=== PATIENT | male | born 1975 | race African-American/Black ===

== ENCOUNTER 2018-10-09 08:06 | Inpatient (IN) | payer BC, SELFPAY ==
[2018-10-09] MEDS ORDERED: Nitroglycerin 2% Ointment 1 INCH/1 GM Packet ONE (09:11)
[2018-10-09 09:15] LABS: #Eosinphils 0.2 thou/uL (0.0-0.7); #Lymphocytes 1.9 thou/uL (1.20-3.40); #Neutrophils 5.6 thou/uL (1.40-6.50); %Basophils 0.4 % (0.0-1.0); %Eosinophils 1.9 % (0.0-10.0); %Lymphocytes 21.9 % (21.0-51.0); %Monocytes 11.1 % (0.0-10.0); %Neutrophils 64.8 % (42.0-75.0); Hemoglobin 11.8 g/dL (14.0-18.0); Mean Corpuscular HGB CONC 30.6 g/dL (32.0-36.0); Mean Corpuscular Hemoglobin 26.5 pg (27.0-31.0); Mean Corpuscular Volume 86.5 fL (78.0-98.0); Mean Platelet Volume 8.5 fL (7.4-10.4); Platelet Count 259 thou/uL (130-400); RBC Distribution Width 15.2 % (11.5-14.5); Red Blood Cell (RBC) Count 4.44 mill/uL (4.70-6.10); White Blood Cell (WBC) Count 8.6 thou/uL (4.8-10.8)
--- NOTE | 2018-10-09 09:18 | RAD ---
EXAM: Portable chest: INDICATIONS: Chest pain dyspnea COMPARISON: None. FINDINGS: Heart size is mildly prominent. There is mild vascular engorgement. No focal consolidation. No obvious effusion. IMPRESSION: Mild cardiomegaly and mild vascular engorgement.
[2018-10-09] MEDS ORDERED: Aspirin 325 MG TAB ONE (10:06)
[2018-10-09 10:12] LABS: CKMB 3.8 ng/mL (0-6.6)
[2018-10-09 10:20] LABS: Albumin 3.5 g/dL (3.5-5.0)
[2018-10-09 10:21] LABS: Chloride 103 mmol/L (98-107); Potassium 4.1 mmol/L (3.5-5.1); Sodium 138 mmol/L (136-145)
[2018-10-09 10:22] LABS: Glucose 89 mg/dL (70-105)
[2018-10-09 10:23] LABS: Globulin 3.2 g/dL (2.4-3.5); Protein, Total 6.7 g/dL (6.0-8.3)
[2018-10-09 10:24] LABS: Anion Gap 11 mmol/L (10-20); Bilirubin, Total 0.6 mg/dL (0.2-1.2); Carbon Dioxide 28 mmol/L (22-29)
[2018-10-09 10:25] LABS: Alkaline Phosphatase 52 U/L (40-150)
[2018-10-09 10:26] LABS: Calc. Creatinine Clearance 0 mL/min (70-130); Estimated GFR-MDRD 72
[2018-10-09 10:27] LABS: BUN (Urea Nitrogen) 12 mg/dL (8.9-20.6)
[2018-10-09 10:28] LABS: ALT (SGPT) 22 U/L (8-55); AST (SGOT) 21 U/L (5-34)
[2018-10-09 10:29] LABS: CK (CPK) 165 U/L (30-200)
[2018-10-09] MEDS ORDERED: Enoxaparin Sodium 80 MG/0.8 ML SYRINGE ONE (11:16)
[2018-10-09] MEDS ORDERED: Enoxaparin Sodium 100 MG/ML SYRINGE ONE (11:16)
[2018-10-09] MEDS ORDERED: hydrALAZINE 20 MG/ML VIAL ONE (11:16)
[2018-10-09] MEDS ORDERED: Furosemide 40 MG/4 ML VIAL ONE (11:16)
[2018-10-09 13:05] LABS: Troponin I 0.874 ng/mL (< 0.028)
[2018-10-09 14:23] VITALS: BMI 20.9
[2018-10-09] MEDS ORDERED: Ondansetron PF 4 MG/2 ML Vial IVP PRN (14:29)
[2018-10-09] MEDS ORDERED: Ondansetron ODT 4 MG TAB SL PRN (14:29)
[2018-10-09] MEDS ORDERED: Nitroglycerin 0.4 MG TAB (25 Tab Bottle) SL PRN (15:12)
[2018-10-09] MEDS ORDERED: Furosemide 20 MG/2 ML VIAL SLOW IVP SCH (15:30)
[2018-10-09 15:41] LABS: Critical Call Chem Troponin I RESULT DECREASING; Troponin I 0.732 ng/mL (< 0.028)
[2018-10-09 16:45] LABS: Amphetamine Not Detected (NotDetected); Barbiturates Screen Not Detected (NotDetected); Benzodiazepine Screen Not Detected (NotDetected); Cocaine Metabolite Screen Detected (NotDetected); Medtox Control Line Valid? VALID (VALID); Medtox Reader # READER 4; Methadone Not Detected (NotDetected); Methamphetamine Not Detected (NotDetected); Opiate Screen Not Detected (NotDetected); Oxycodone Screen Not Detected (NotDetected); Phencyclidine (PCP) Not Detected (NotDetected); THC/Cannabinoid Screen Not Detected (NotDetected); Tricyclic Screen Not Detected (NotDetected)
--- NOTE | 2018-10-09 17:09 | HP ---
PRIMARY CARE PROVIDER: Dr. Jeff Fong. CHIEF COMPLAINT: Chest pain. HISTORY OF PRESENT ILLNESS: Mr. Nunez is a pleasant 43-year-old gentleman, who was seen at [facility] on October 09, 2018. He has a past medical history of hypertension. Hospitalized at this facility in August 2015 for diverticular bleed. He reports that he has not seen his primary care provider in a couple of years. He does not take any medications at home. Over the last 2 weeks, he has had progressively worsening shortness of breath. He endorses orthopnea and paroxysmal nocturnal dyspnea. Also, endorses bilateral lower extremity edema over the last 2 days. He reports cough over the last 2 weeks. The cough is dry, with occasional small amount of sputum at night. He has been taking herbal teas and NyQuil, with improvement in cough. Over the last 3 days, he has had chest pain. The pain is in the retrosternal and left areas of the chest, occasionally sharp, occasionally dull, nonradiating, nonpleuritic and nonexertional. He cannot recall any aggravating or relieving factors. He denies any fevers or chills. He denies any long distance travel prior to the onset of his symptoms. Came to the emergency room today because of ongoing chest pain. REVIEW OF SYSTEMS: All other systems reviewed and found to be negative. PAST MEDICAL HISTORY: Hypertension and diverticulosis. PAST SURGICAL HISTORY: Colonoscopy. SOCIAL HISTORY: The patient smokes 2 to 5 cigarettes whenever he has alcohol. 12-pack of alcohol lasting a week. He denies any recreational drug use. FAMILY HISTORY: No family history of coronary artery disease. ALLERGIES: NO KNOWN DRUG ALLERGIES. CURRENT MEDICATIONS: None. PHYSICAL EXAMINATION: GENERAL: On examination, Mr. Nunez is awake and alert, not in acute distress. VITAL SIGNS: Blood pressure is 168/85, pulse 81, respiratory rate 18, and oxygen saturation 96% on room air. He is afebrile. When he presented to the emergency room, he had a blood pressure of 263/181. He is obese. EYES: No scleral icterus, no conjunctival pallor. ENT: Moist mucosal membranes. No oropharyngeal erythema or exudates. NECK: Supple, nontender. Trachea is midline. RESPIRATORY: Accessory muscles of breathing are not active. Chest wall movements are symmetric bilaterally. He has a few bibasilar crackles. CARDIOVASCULAR: S1 and S2 are heard, regular. Peripheral pulses palpable. No carotid bruit. No pericardial rub. ABDOMEN: Soft, nontender. Bowel sounds heard. NEUROLOGIC: Cranial nerves 2 through 12 intact, deep tendon reflexes 2+. MUSCULOSKELETAL: Power is 5/5 in all 4 extremities. SKIN: He has bilateral lower extremity edema, pitting. LYMPHATIC: No cervical lymphadenopathy. PSYCHIATRIC: Normal mood, normal affect. The patient is oriented to person, place, and time. LABORATORY DATA: Mr. Nunez's labs and investigations were reviewed. I reviewed his electrocardiogram, which shows normal sinus rhythm, no ST changes to suggest an acute coronary syndrome. I also reviewed his chest x-ray, which shows pulmonary vascular congestion. He has normal white count, normocytic anemia with hemoglobin 11.8, normal platelet count, normal electrolytes, elevated creatinine of 1.31, unremarkable LFTs, elevated BNP of 1645, and troponin I that is elevated at 0.732, downtrending from 0.874. ASSESSMENT AND PLAN: Mr. Nunez is a pleasant 43-year-old gentleman, who was seen at [facility] on October 09, 2018. His problem list includes: 1. Chest pain: Mr. Nunez is presenting with chest pain, most likely secondary to non-ST elevation myocardial infarction. He will be admitted to the hospital for further management. He has received aspirin and Lovenox in the emergency room, I will continue them. 2. Elevated troponin: Most likely secondary to non-ST elevation myocardial infarction, although other entities such as demand ischemia cannot be ruled out at this time. Given his history of feeling unwell secondary to cough, viral myocarditis, etc., on the differential, we will continue aspirin and Lovenox and obtain 2D echocardiogram to evaluate cardiac function. 3. Congestive heart failure: New onset, most likely cause for the patient's shortness of breath. We will check 2D echocardiogram. We will diurese him and check daily weights. 4. Hypertensive urgency: The patient presented with hypertensive urgency. We will start him on beta-vanita and PRIYANK inhibitor for now. We will also add p.r.n. IV hydralazine for blood pressure spikes. 5. Chronic kidney disease: The patient appears to have a history of chronic kidney disease. We will recheck his creatinine level, since he will be receiving intravenous diuretics. Many thanks for allowing me to participate in your patient's care. Please feel free to contact me with any questions or concerns. LEVEL OF RISK: High. LEVEL OF COMPLEXITY: High. Job ID: [id number] MTDD
--- NOTE | 2018-10-09 17:13 | CON ---
DATE OF CONSULTATION: 10/09/2018 REASON FOR CONSULTATION: Hypertension. HISTORY OF PRESENT ILLNESS: Mr. Nunez is a 43-year-old gentleman, who has not been seen or evaluated by Cardiology in the past. He recently states he was not feeling well. He developed shortness of breath with little ambulation. He also developed chest tightness. He was seen and evaluated in the emergency room, where his blood pressure was 260/180. He received multiple rounds of medications with decrease in his blood pressure to 180/110. He currently feels better after his blood pressure now 150s/80s. He has no previous history of underlying coronary artery disease. He states he sees Dr. Jeff Fong. He stopped all his medications 2 years ago. He has not been seen or evaluated since. He also states he snores. He is grossly overweight, weighing 385 pounds. PAST MEDICAL HISTORY: Hypertension. ALLERGIES: NONE. MEDICATIONS: None. SOCIAL HISTORY: No current tobacco or alcohol use. He is currently with children. He is unemployed. REVIEW OF SYSTEMS: A 10-point review of systems is reviewed as above, otherwise negative. PHYSICAL EXAMINATION: VITAL SIGNS: Blood pressure 156/85, pulse 81, temperature afebrile. GENERAL: Patient is a pleasant male, who is in no acute distress. The patient appears their stated age. NEUROLOGIC: The patient is alert and oriented x3 with no focal neurologic deficits. HEENT: Sclerae without icterus. Mouth has moist mucous membranes with normal pallor. NECK: No JVD. Carotid upstroke brisk. No bruits bilaterally. LUNGS: Clear to auscultation with unlabored respirations. BACK: No scoliosis or kyphosis. CARDIAC: Regular rate and rhythm with normal S1 and S2. No S3 or S4 noted. No significant rubs, murmurs, thrills, or gallops noted throughout the precordium. PMI is not displaced. There is no parasternal heave. ABDOMEN: Soft, nontender, nondistended. No peritoneal signs present. No hepatosplenomegaly. No abnormal striae. EXTREMITIES: 2+ femoral and 2+ dorsalis pedis pulses. No cyanosis, clubbing, or edema. SKIN: No gross abnormalities. PERTINENT LABORATORY DATA: Hemoglobin 11.8. Creatinine 1.3 with a GFR of 72. Peak troponin 0.8. BNP of 1645. EKG; normal sinus rhythm, ST-T wave changes suggesting LVH. IMPRESSION: 1. Malignant hypertension. 2. Elevated troponin. 3. Obstructive sleep apnea. RECOMMENDATIONS: The patient most likely to benefit from calcium channel vanita in addition to diuretic therapy. He was placed on Lopressor, which is fourth line for a blood pressure control. We will add Norvasc 5 mg one p.o. q.a.m. and hydrochlorothiazide 12.5 q.a.m. He has increased troponin likely due to a type 2 DE given his malignant hypertension. We will review his echo to assess his LVEF. I counseled him on salt restriction. He may also need an outpatient sleep study. Job ID: [id number]
[2018-10-09] MEDS ORDERED: cloNIDine 0.1 MG TAB PO PRN (17:50)
[2018-10-09] MEDS ORDERED: Metoprolol Tartrate 25 MG TAB PO SCH (21:00)
[2018-10-09] MEDS: Enoxaparin Sodium 80 MG/0.8 ML SYRINGE SC SCH (21:13)
[2018-10-09] MEDS: Atorvastatin Calcium 40 MG TAB PO SCH (21:14)
[2018-10-10] MEDS ORDERED: Acetaminophen 325 MG TAB PO PRN (03:52)
[2018-10-10] MEDS ORDERED: Amlodipine 5 MG TAB PO SCH (04:00)
[2018-10-10] MEDS ORDERED: Lorazepam 1 MG TAB PO SCH (04:00)
[2018-10-10 05:44] LABS: Anion Gap 13 mmol/L (10-20); BUN (Urea Nitrogen) 12 mg/dL (8.9-20.6); Calc. Creatinine Clearance 80 mL/min (70-130); Carbon Dioxide 23 mmol/L (22-29); Cardiac Risk 3.8 (Less than 4.5); Chloride 103 mmol/L (98-107); Cholesterol 119 mg/dl (< 200 Desired); Estimated GFR-MDRD 77; Glucose 84 mg/dL (70-105); HDL Cholesterol 31 mg/dL (>60 Neg Risk); LDL Cholesterol, Calculated 77 mg/dL; Potassium 3.5 mmol/L (3.5-5.1); Sodium 135 mmol/L (136-145); Triglycerides 55 mg/dL (Less than 150)
[2018-10-10] MEDS: Furosemide 40 MG/4 ML VIAL SLOW IVP SCH ×2 (05:47→15:34)
[2018-10-10 05:48] LABS: #Eosinphils 0.1 thou/uL (0.0-0.7); #Monocytes 1.2 thou/uL (0.11-0.59); #Neutrophils 6.6 thou/uL (1.40-6.50); %Basophils 0.4 % (0.0-1.0); %Eosinophils 0.9 % (0.0-10.0); %Lymphocytes 20.4 % (21.0-51.0); %Monocytes 11.6 % (0.0-10.0); %Neutrophils 66.6 % (42.0-75.0); Hemoglobin 11.8 g/dL (14.0-18.0); Mean Corpuscular HGB CONC 30.4 g/dL (32.0-36.0); Mean Corpuscular Hemoglobin 25.9 pg (27.0-31.0); Mean Corpuscular Volume 85.1 fL (78.0-98.0); Mean Platelet Volume 8.4 fL (7.4-10.4); Platelet Count 293 thou/uL (130-400); RBC Distribution Width 15.1 % (11.5-14.5); Red Blood Cell (RBC) Count 4.55 mill/uL (4.70-6.10); White Blood Cell (WBC) Count 9.9 thou/uL (4.8-10.8)
[2018-10-10] MEDS ORDERED: Lisinopril 2.5 MG TAB PO SCH ×2 (09:00→11:15)
[2018-10-10] MEDS: Amlodipine 5 MG TAB PO SCH ×2 (09:14→20:10)
[2018-10-10] MEDS: Enoxaparin Sodium 80 MG/0.8 ML SYRINGE SC SCH (09:15)
[2018-10-10] MEDS: Aspirin 325 mg Enteric Coated Tablet PO SCH (09:15)
[2018-10-10] MEDS ORDERED: hydrALAZINE 20 MG/ML VIAL SLOW IVP SCH (11:15)
[2018-10-10] MEDS ORDERED: Iopamidol 370 76% 100 ML VIAL ONE (13:44)
--- NOTE | 2018-10-10 13:45 | PDOC.PN ---
- Subjective Encounter Start Date: 10/10/18 Encounter Start Time: 08:00 Pt seen for followup re: chest pain. Says he feels better. - Objective MAR Reviewed: Yes Vital Signs & Weight: Vital Signs (12 hours) Temp Pulse Resp BP BP Pulse Ox 10/10/18 12:34 98.4 F 74 16 180/107 H 97 10/10/18 09:09 98.8 F 96 16 181/102 H 95 10/10/18 08:00 95 10/10/18 04:20 99.3 F 88 16 100 10/10/18 04:03 78 10/10/18 03:47 78 18 213/130 H Weight Weight 356 lb I&O: 10/09/18 10/10/18 10/11/18 06:59 06:59 06:59 Intake Total 1200 Output Total 2650 Balance -1450 Result Diagrams: 10/10/18 04:44 10/10/18 04:44 EKG Reviewed by me: Yes (Tele: NSR) Phys Exam - Physical Examination Morbid obesity HEENT: moist MMs, sclera anicteric, oral pharynx no lesions, 2+ tonsils Neck: no nodes, no JVD, supple, full ROM Respiratory: clear to auscultation bilateral Cardiovascular: RRR, no rub S1, S2 Gastrointestinal: soft, non-tender, no distention, positive bowel sounds Musculoskeletal: edema present Neurological: moves all 4 limbs Psychiatric: normal affect, A&O x 3 Dx/Plan (1) Chest pain Code(s): R07.9 - CHEST PAIN, UNSPECIFIED Status: Acute Comment: Improved, likely due to elevated blood pressure. Check d-dimer to r/o PE (2) Elevated troponin Code(s): R74.8 - ABNORMAL LEVELS OF OTHER SERUM ENZYMES Status: Acute Comment: Secondary to elevted blood pressure. PE being ruled out. (3) Hypertensive urgency Code(s): I16.0 - HYPERTENSIVE URGENCY Status: Acute Comment: HCTZ dose increased. Increase lisinopril dose. (4) Cocaine use Code(s): F14.90 - COCAINE USE, UNSPECIFIED, UNCOMPLICATED Status: Acute Comment: pt counseled (5) Morbid obesity Code(s): E66.01 - MORBID (SEVERE) OBESITY DUE TO EXCESS CALORIES Status: Chronic Comment: appreciate dietitian input - Plan * . Review of Systems - Review of Systems Constitutional: negative: fever, chills, sweats, weakness, malaise Respiratory: SOB with Excertion. negative: Cough, Shortness of Breath, Pleuritic Pain, Wheezing Cardiovascular: chest pain, orthopnea. negative: palpitations, paroxysmal nocturnal dyspnea, edema, light headedness Gastrointestinal: negative: Nausea, Vomiting, Abdominal Pain, Diarrhea, Constipation, Melena, Hematochezia Genitourinary: negative: Dysuria, Frequency, Incontinence, Hematuria, Retention - Medications/Allergies Allergies/Adverse Reactions: Allergies Allergy/AdvReac Type Severity Reaction Status Date / Time No Known Drug Allergies Allergy Verified 10/09/18 20:48 Medications: Current Medications Acetaminophen (Tylenol) 650 mg PO Q4H PRN PRN Reason: Headache/Fever or Mild Pain Last Admin: 10/10/18 04:03 Dose: 650 mg Amlodipine Besylate (Norvasc) 5 mg PO BID [facility] Last Admin: 10/10/18 09:14 Dose: 5 mg Aspirin (Ecotrin) 325 mg PO DAILY [facility] Last Admin: 10/10/18 09:15 Dose: 325 mg Atorvastatin Calcium (Lipitor) 40 mg PO HS [facility] Last Admin: 10/09/18 21:14 Dose: 40 mg Clonidine (Catapres) 0.1 mg PO Q6H PRN PRN Reason: SBP Greater Than 170 Last Admin: 10/09/18 18:22 Dose: 0.1 mg Furosemide (Lasix) 40 mg SLOW IVP 0600,1400 [facility] Last Admin: 10/10/18 05:47 Dose: 40 mg Hydralazine HCl (Apresoline) 10 mg SLOW IVP Q6H PRN PRN Reason: SBP Greater Than 170 Hydrochlorothiazide (Hydrochlorothiazide) 25 mg PO DAILY [facility] Lisinopril (Zestril) 5 mg PO DAILY [facility] Nitroglycerin (Nitrostat) 0.4 mg SL Q5MIN PRN PRN Reason: Chest Pain Sodium Chloride (Flush - Normal Saline) 10 ml IVF PRN PRN PRN Reason: Saline Flush
--- NOTE | 2018-10-10 14:10 | CON ---
DATE OF CONSULTATION: SUBJECTIVE: Mr. Nunez is doing better today. No current complaints. He states shortness of breath is improved. His blood pressure also feels improved, but still increased. OBJECTIVE: VITAL SIGNS: Blood pressure 180/107, pulse 74, and temperature 98.4. LUNGS: Clear to auscultation. HEART: Regular rate and rhythm. ABDOMEN: Soft, nontender, nondistended. EXTREMITIES: No edema. PERTINENT LABORATORY DATA: Hemoglobin 11.8. Creatinine 1.23. IMPRESSION: 1. Malignant hypertension. 2. Elevated troponin. 3. Obstructive sleep apnea. RECOMMENDATIONS: Unfortunately, Mr. Nunez appears to have poor insight into his current medical condition. I do feel this is not really a priority for Mr. Nunez and concerned about outpatient treatment. Nonetheless, at this point, we will continue current medical therapy. He is currently on Norvasc. We will add hydrochlorothiazide 25 mg with first dose now. Can also increase lisinopril as needed. He is on metoprolol. I would offer Coreg. I will need a noninvasive stress study at some point to assess for any areas of ischemia. Job ID: [id number]
--- NOTE | 2018-10-10 16:32 | CT ---
CT arteriogram chest with IV contrast and 3-D imaging HISTORY: Elevated d-dimer. Chest pain. FINDINGS: There is good contrast opacification of the pulmonary arteries and thoracic aorta. Bovine o rigin of the great vessels at the aortic arch. Small amount right pleural fluid. No pneumothorax, lobar consolidation, or mediastinal adenopathy evident. Heart is enlarged. IMPRESSION: No CT evidence of pulmonary embolus. Very small right pleural effusion. Cause is not evident. Cardiomegaly. No CT findings of pulmonary
[2018-10-10] MEDS: Atorvastatin Calcium 40 MG TAB PO SCH (20:11)
[2018-10-10] MEDS: hydrALAZINE 20 MG/ML VIAL SLOW IVP PRN (20:13)
[2018-10-11] MEDS: Furosemide 40 MG/4 ML VIAL SLOW IVP SCH ×2 (05:16→14:52)
[2018-10-11] MEDS: hydrALAZINE 20 MG/ML VIAL SLOW IVP PRN (05:16)
[2018-10-11 05:34] LABS: #Eosinphils 0.2 thou/uL (0.0-0.7); #Lymphocytes 1.7 thou/uL (1.20-3.40); #Monocytes 1.3 thou/uL (0.11-0.59); %Basophils 0.4 % (0.0-1.0); %Eosinophils 2.4 % (0.0-10.0); %Lymphocytes 16.4 % (21.0-51.0); %Monocytes 12.3 % (0.0-10.0); %Neutrophils 68.6 % (42.0-75.0); Hemoglobin 12.2 g/dL (14.0-18.0); Mean Corpuscular HGB CONC 30.7 g/dL (32.0-36.0); Mean Corpuscular Hemoglobin 25.9 pg (27.0-31.0); Mean Corpuscular Volume 84.5 fL (78.0-98.0); Mean Platelet Volume 8.4 fL (7.4-10.4); Platelet Count 324 thou/uL (130-400); RBC Distribution Width 14.9 % (11.5-14.5); White Blood Cell (WBC) Count 10.2 thou/uL (4.8-10.8)
[2018-10-11 06:01] LABS: Anion Gap 13 mmol/L (10-20); BUN (Urea Nitrogen) 14 mg/dL (8.9-20.6); Calc. Creatinine Clearance 164 mL/min (70-130); Carbon Dioxide 25 mmol/L (22-29); Chloride 101 mmol/L (98-107); Estimated GFR-MDRD 73; Glucose 83 mg/dL (70-105); Potassium 3.6 mmol/L (3.5-5.1); Sodium 135 mmol/L (136-145)
[2018-10-11] MEDS: Aspirin 325 mg Enteric Coated Tablet PO SCH (08:54)
[2018-10-11] MEDS: Amlodipine 5 MG TAB PO SCH ×2 (08:54→22:13)
[2018-10-11] MEDS: Hydrochlorothiazide 25 MG TAB PO SCH (08:54)
[2018-10-11] MEDS ORDERED: Lisinopril 5 MG TAB PO SCH ×3 (09:00→21:00)
--- NOTE | 2018-10-11 15:35 | PDOC.PN ---
- Subjective Encounter Start Date: 10/11/18 Encounter Start Time: 08:20 Pt seen for followup re: chest pain. Says chest pain is better. No complaints. - Objective MAR Reviewed: Yes Vital Signs & Weight: Vital Signs (12 hours) Temp Pulse Pulse Pulse Resp BP BP 10/11/18 15:28 98 F 78 18 10/11/18 11:47 98.1 F 92 18 10/11/18 10:16 100 93 183/106 H 159/92 H 10/11/18 07:40 97.7 F 102 H 18 10/11/18 05:16 83 10/11/18 04:00 98.8 F 83 20 BP BP Pulse Ox Pulse Ox Pulse Ox 10/11/18 15:28 172/111 H 93 L 10/11/18 11:47 180/112 H 95 10/11/18 10:16 94 L 93 L 10/11/18 07:40 178/115 H 93 L 10/11/18 05:16 10/11/18 04:00 175/95 H 93 L Weight Weight 353 lb 13.471 oz I&O: 10/10/18 10/11/18 10/12/18 06:59 06:59 06:59 Intake Total 1200 1820 Output Total 2650 5200 Balance -1450 -3380 Result Diagrams: 10/11/18 05:02 10/11/18 05:02 EKG Reviewed by me: Yes (Tele: NSR) Phys Exam - Physical Examination Morbid obesity HEENT: moist MMs Neck: supple Respiratory: clear to auscultation bilateral Cardiovascular: RRR Gastrointestinal: positive bowel sounds Neurological: moves all 4 limbs Psychiatric: normal affect Dx/Plan (1) Chest pain Code(s): R07.9 - CHEST PAIN, UNSPECIFIED Status: Acute Comment: Improved, likely due to elevated blood pressure. Pt to have stress test. (2) Elevated troponin Code(s): R74.8 - ABNORMAL LEVELS OF OTHER SERUM ENZYMES Status: Acute Comment: Secondary to elevted blood pressure. (3) Hypertensive urgency Code(s): I16.0 - HYPERTENSIVE URGENCY Status: Acute Comment: Change lisinopril to 5 mg PO BID. (4) Cocaine use Code(s): F14.90 - COCAINE USE, UNSPECIFIED, UNCOMPLICATED Status: Acute Comment: pt counseled (5) Morbid obesity Code(s): E66.01 - MORBID (SEVERE) OBESITY DUE TO EXCESS CALORIES Status: Chronic - Plan * . Review of Systems - Review of Systems Cardiovascular: negative: chest pain, palpitations, orthopnea, paroxysmal nocturnal dyspnea, edema, light headedness Gastrointestinal: negative: Nausea, Vomiting, Abdominal Pain, Diarrhea, Constipation, Melena, Hematochezia - Medications/Allergies Allergies/Adverse Reactions: Allergies Allergy/AdvReac Type Severity Reaction Status Date / Time No Known Drug Allergies Allergy Verified 10/09/18 20:48 Medications: Current Medications Acetaminophen (Tylenol) 650 mg PO Q4H PRN PRN Reason: Headache/Fever or Mild Pain Last Admin: 10/10/18 04:03 Dose: 650 mg Amlodipine Besylate (Norvasc) 5 mg PO BID [facility] Last Admin: 10/11/18 08:54 Dose: 5 mg Aspirin (Ecotrin) 325 mg PO DAILY [facility] Last Admin: 10/11/18 08:54 Dose: 325 mg Atorvastatin Calcium (Lipitor) 40 mg PO HS [facility] Last Admin: 10/10/18 20:11 Dose: 40 mg Clonidine (Catapres) 0.1 mg PO Q6H PRN PRN Reason: SBP Greater Than 170 Last Admin: 10/09/18 18:22 Dose: 0.1 mg Furosemide (Lasix) 40 mg SLOW IVP 0600,1400 [facility] Last Admin: 10/11/18 14:52 Dose: 40 mg Hydralazine HCl (Apresoline) 10 mg SLOW IVP Q6H PRN PRN Reason: SBP Greater Than 170 Last Admin: 10/11/18 05:16 Dose: 10 mg Hydrochlorothiazide (Hydrochlorothiazide) 25 mg PO DAILY [facility] Last Admin: 10/11/18 08:54 Dose: 25 mg Lisinopril (Zestril) 5 mg PO DAILY [facility] Last Admin: 10/11/18 08:54 Dose: 5 mg Nitroglycerin (Nitrostat) 0.4 mg SL Q5MIN PRN PRN Reason: Chest Pain Sodium Chloride (Flush - Normal Saline) 10 ml IVF PRN PRN PRN Reason: Saline Flush Last Admin: 10/11/18 14:52 Dose: 10 ml
--- NOTE | 2018-10-11 19:29 | PRG ---
DATE OF SERVICE: 10/11/2018 SUBJECTIVE: Mr. Nunez is doing well. Blood pressure appears to be improving, but still elevated. No current complaints. OBJECTIVE: VITAL SIGNS: Blood pressure 180/112, pulse 92, temperature 98.1. LUNGS: Clear to auscultation. HEART: Regular rate and rhythm. ABDOMEN: Soft, nontender, and nondistended. EXTREMITIES: No edema. DIAGNOSTIC STUDIES: Echo Doppler showed LVEF 60% to 65% with moderately dilated left atrium. IMPRESSION: 1. Malignant hypertension. 2. Shortness of breath. 3. Elevated troponin. 4. Obstructive sleep apnea. RECOMMENDATIONS: 1. Increase lisinopril to 10 mg b.i.d. 2. Decrease aspirin to 81 q.a.m. 3. Continue amlodipine 10 mg daily in addition to hydrochlorothiazide 25 daily. 4. Stress test was scheduled. Plan is blood pressure in the 150s to 160 systolic. His stress is normal as blood pressure is as above. When okay, he will be okay for discharge. Job ID: [id number]
[2018-10-11] MEDS: Lisinopril 10 MG TAB PO SCH (22:14)
[2018-10-11] MEDS: Atorvastatin Calcium 40 MG TAB PO SCH (22:15)
[2018-10-12] MEDS ORDERED: Sodium Chloride 0.9% 10 ML ONE (05:48)
[2018-10-12] MEDS: Furosemide 40 MG/4 ML VIAL SLOW IVP SCH (06:21)
[2018-10-12 06:25] LABS: #Eosinphils 0.2 thou/uL (0.0-0.7); #Lymphocytes 2.2 thou/uL (1.20-3.40); #Monocytes 1.2 thou/uL (0.11-0.59); #Neutrophils 5.6 thou/uL (1.40-6.50); %Basophils 0.4 % (0.0-1.0); %Eosinophils 2.5 % (0.0-10.0); %Lymphocytes 23.2 % (21.0-51.0); %Monocytes 13.3 % (0.0-10.0); %Neutrophils 60.6 % (42.0-75.0); Hemoglobin 12.4 g/dL (14.0-18.0); Mean Corpuscular HGB CONC 29.2 g/dL (32.0-36.0); Mean Corpuscular Volume 85.6 fL (78.0-98.0); Mean Platelet Volume 8.3 fL (7.4-10.4); Platelet Count 336 thou/uL (130-400); RBC Distribution Width 14.9 % (11.5-14.5); Red Blood Cell (RBC) Count 4.96 mill/uL (4.70-6.10); White Blood Cell (WBC) Count 9.3 thou/uL (4.8-10.8)
[2018-10-12 06:34] LABS: Anion Gap 13 mmol/L (10-20); BUN (Urea Nitrogen) 18 mg/dL (8.9-20.6); Calc. Creatinine Clearance 149 mL/min (70-130); Calcium 9.4 mg/dL (7.8-10.44); Carbon Dioxide 27 mmol/L (22-29); Chloride 99 mmol/L (98-107); Estimated GFR-MDRD 66; Glucose 78 mg/dL (70-105); Potassium 3.6 mmol/L (3.5-5.1); Sodium 135 mmol/L (136-145)
[2018-10-12] MEDS: Amlodipine 5 MG TAB PO SCH ×2 (08:12→21:08)
[2018-10-12] MEDS: Hydrochlorothiazide 25 MG TAB PO SCH (08:13)
[2018-10-12] MEDS: Lisinopril 10 MG TAB PO SCH (08:13)
[2018-10-12] MEDS: Aspirin 81 mg Enteric Coated Tablet PO SCH (08:13)
[2018-10-12] MEDS ORDERED: Regadenoson 0.4 MG/5 ML SYRINGE ONE (13:26)
--- NOTE | 2018-10-12 19:30 | PRG ---
DATE OF SERVICE: 10/12/2018 SUBJECTIVE: Mr. Nunez is doing well. His blood pressure did decrease today and likely related to medications and diuretics. He has no current symptoms. OBJECTIVE: VITAL SIGNS: Blood pressure 130/68, pulse 86, temperature 98.4. LUNGS: Clear to auscultation. HEART: Regular rate and rhythm. ABDOMEN: Soft, nontender, and nondistended. EXTREMITIES: No edema. PERTINENT LABORATORY DATA: Hemoglobin 12.4. Creatinine 1.4, which is up from 1.2. IMPRESSION: 1. Malignant hypertension. 2. Obstructive sleep apnea. 3. Elevated troponin, likely type 2 myocardial infarction. RECOMMENDATIONS: 1. We will decrease lisinopril to 10 mg daily. 2. Discontinue Lasix. 3. Outpatient sleep study. 4. Review stress study to assess for ischemia. His elevated troponin is likely related to malignant hypertension and LVH. 5. If blood pressure is stable and stress is negative, it will be okay from my standpoint to discharge home with outpatient followup. Job ID: [id number]
--- NOTE | 2018-10-12 19:45 | PRG ---
DATE OF SERVICE: 10/12/2018 SUBJECTIVE: A 43-year-old male with hypertension, currently not taking any medications, presented to the hospital with chest discomfort. His workup was consistent with hypertensive urgency. His maximum troponin was 0.874 with BNP of 1645. Urine drug screen was positive for cocaine. He has currently been seen by Cardiology. He has been started on lisinopril, aspirin, as well as hydrochlorothiazide. He denies any chest discomfort at this time. No diaphoresis reported. REVIEW OF SYSTEMS: All other review of systems was reviewed and was found negative. MEDICATIONS: Current medications were reviewed. The patient is on: 1. Amlodipine. 2. Aspirin. 3. Hydrochlorothiazide. 4. Lisinopril. PHYSICAL EXAMINATION: VITAL SIGNS: Temperature 98.4, pulse 86, blood pressure of 130/68, respirations of 16, and O2 saturation 98% on room air. Intake of 1450, output 3150. GENERAL: A 43-year-old male, in no apparent distress. LUNGS: Clear to auscultation bilaterally. No wheezing, rales, or rhonchi. HEART: S1 and S2 present. Regular rate and rhythm. ABDOMEN: Soft. Bowel sounds present. EXTREMITIES: Trace edema in bilateral lower extremity. NEUROLOGIC: Grossly nonfocal. DIAGNOSTIC DATA: Telemetry monitoring by my review showed sinus rhythm. Echocardiogram showed 2/3 diastolic dysfunction with [id number] tricuspid regurgitation. Aortic root was dilated at 3.94 cm. Fasting lipids showed LDL 77, cholesterol 119, triglyceride 55. BUN 12, creatinine 1.23. The creatinine this morning was 1.4. IMPRESSION: 1. Chest discomfort. 2. Elevated troponin secondary to demand ischemia/type 2 myocardial infarction. 3. Hypertensive urgency. 4. Acute on chronic diastolic heart failure. 5. Obstructive sleep apnea. 6. Morbid obesity with a BMI of 44.9. 7. Chronic kidney disease, stage 2. 8. Chronic anemia. PLAN: The patient will be monitored on the telemetry unit. Cardiology is following the patient. We will continue aspirin with low-dose amlodipine, hydrochlorothiazide, and lisinopril per Cardiology recommendation. A stress test has been ordered by Cardiology. We will recheck labs in a.m. The patient was extensively counseled on congestive heart failure. We will recheck the electrolytes in a.m. We will hold antihypertensives if systolic blood pressure is below 140. Job ID: [id number]
[2018-10-12] MEDS: Atorvastatin Calcium 40 MG TAB PO SCH (21:08)
[2018-10-13 05:55] LABS: Anion Gap 10 mmol/L (10-20); BUN (Urea Nitrogen) 19 mg/dL (8.9-20.6); Calc. Creatinine Clearance 153 mL/min (70-130); Calcium 9.5 mg/dL (7.8-10.44); Carbon Dioxide 29 mmol/L (22-29); Chloride 100 mmol/L (98-107); Estimated GFR-MDRD 68; Glucose 90 mg/dL (70-105); Magnesium 2.3 mg/dL (1.6-2.6); Potassium 3.7 mmol/L (3.5-5.1); Sodium 135 mmol/L (136-145)
[2018-10-13] MEDS ORDERED: Hydrochlorothiazide 25 MG TAB PO SCH (09:00)
[2018-10-13] MEDS ORDERED: Lisinopril 10 MG TAB PO SCH ×2 (09:00)
--- NOTE | 2018-10-13 10:01 | NM ---
EXAM: CARDIAC SPECT HISTORY: Chest pain, CHF, ND, hypertension, smoker TECHNIQUE: A myocardial perfusion scan was performed using the single isotope 2 day protocol with gregorio hnetium 99m sestamibi. [33 mCi] was injected intravenously for the rest exam followed by 33 mCifor the stress study. Pharmacologic stress with Lexiscan was monitored and interpreted by Dr. Arredondo FINDINGS: No fixed or reversible defects are seen. Gated SPECT LVEF: 40% Wall motion exam: Global hypokinesis IMPRESSION: No evidence of reversible ischemia
[2018-10-13] MEDS: Amlodipine 5 MG TAB PO SCH (12:55)
[2018-10-13] MEDS: Aspirin 81 mg Enteric Coated Tablet PO SCH (12:55)
[2018-10-13 17:59] VITALS: BP 136/81; TEMP 97.9
--- NOTE | 2018-10-14 09:07 | DIS ---
DATE OF ADMISSION: 10/09/2018 DATE OF DISCHARGE: 10/13/2018 DISCHARGE DISPOSITION: Home. FOLLOWUP: 1. Follow up with primary care physician, Dr. Fong in 1 week. 2. Follow up with Dr. Aviles in 1 week. ALLERGIES: NO KNOWN DRUG ALLERGIES. THE PATIENT WAS SEEN AND EXAMINED ON THE DAY OF DISCHARGE. DENIES ANY NEW COMPLAINTS. NO CHEST PAIN, SHORTNESS OF BREATH, OR PALPITATIONS. BRIEF HOSPITAL COURSE: The patient is a 43-year-old male with hypertension, currently not taking any medications, presented to the emergency room with chest discomfort. His workup was consistent with hypertensive urgency with maximum troponin of 0.874. BNP of 1645 and urine drug screen positive for cocaine. He was monitored on the telemetry unit. He has been started on lisinopril, aspirin along with hydrochlorothiazide. He underwent a Cardiolite stress test on the day of discharge that was negative for reversible ischemia. His ejection fraction was 40% with global hypokinesis on the stress. However, echocardiogram showed ejection fraction of 60% to 65% with grade 2 of 3 diastolic dysfunction, [id number] tricuspid regurgitation with dilated root of 3.94 cm. He has been cleared by Cardiology for discharge. He was advised to follow up with Dr. Aviles and Dr. Fong in 1 week. DISCHARGE MEDICATIONS: 1. Aspirin 81 mg daily. 2. Amlodipine 5 mg twice a day. 3. Lipitor 40 mg at bedtime. 4. Hydrochlorothiazide 25 mg daily. 5. Lisinopril 10 mg daily. 6. Clonidine as needed. RECOMMENDATIONS: 1. Basic metabolic profile after 1 week is recommended. Primary care physician advised to follow. 2. Sleep study as outpatient is recommended. Primary care physician advised to follow. FINAL DIAGNOSES: 1. Chest discomfort. 2. Elevated troponins secondary to demand ischemia/type 2 myocardial infarction, present on admission. 3. Hypertensive urgency. 4. Acute on chronic diastolic heart failure, improved. 5. Suspected obstructive sleep apnea. 6. Morbid obesity with a BMI of 44. 7. Chronic kidney disease, stage 2. 8. Chronic anemia. 9. Mild hyponatremia. 10. Chronic kidney disease, stage 2. 11. Repeat basic metabolic profile after 1 week is recommended. 12. Lifestyle modification was emphasized. Job ID: [id number]
--- NOTE | 2018-10-15 16:56 | EKG ---
Test Reason : Blood Pressure : / mmHG Vent. Rate : 100 BPM Atrial Rate : 100 BPM P-R Int : 150 ms QRS Dur : 096 ms QT Int : 366 ms P-R-T Axes : 046 -32 102 degrees QTc Int : 472 ms Sinus rhythm with occasional Premature ventricular complexes and Premature atrial complexes Possible Left atrial enlargement Left axis deviation Left ventricular hypertrophy Prolonged QT Abnormal ECG Confirmed by YUNIOR ECHOLS ([id number]), editorial intern ANTHONY ARNOLD ([id number]) on 10/15/2018 4:56:09 PM Referred By: Confirmed By:YUNIOR ECHOLS
== END 2018-10-13 20:25 | disposition home or self-care (01) | DRG 280 ==
LOC: ERS 08:06 → ERHOLD 11:00 → 2NO 14:23
PROVIDERS: ADMIT Internal Medicine; ATTEND Internal Medicine
DX: I21.A1 Myocardial infarction type 2 (principal); I50.33 Acute on chronic diastolic (congestive) heart failure; Z68.41 Body mass index [BMI] 40.0-44.9, adult; I13.0 Hypertensive heart and chronic kidney disease with heart failure and stage 1 through stage 4 chronic kidney disease, or unspecified chronic kidney disease; E87.1 Hypo-osmolality and hyponatremia; I16.0 Hypertensive urgency; F17.210 Nicotine dependence, cigarettes, uncomplicated; K57.90 Diverticulosis of intestine, part unspecified, without perforation or abscess without bleeding; G47.33 Obstructive sleep apnea (adult) (pediatric); F14.90 Cocaine use, unspecified, uncomplicated; E66.01 Morbid (severe) obesity due to excess calories; N18.2 Chronic kidney disease, stage 2 (mild); D63.1 Anemia in chronic kidney disease
CPT/HCPCS: 36415; 71045; 71275; 78452; 80048; 80053; 80061; 80306; 82550; 82553; 83735; 83880; 84484; 85025; 85379; 93005; 93017; 93306; 93798; 94640; 96372; 96374; 96375; 96376; A9500; J0360; J1650; J1940; J2785; J7620; Q9967